=== PATIENT | female | born 1950 | race Caucasian/White ===

== ENCOUNTER 2016-06-08 08:09 | Day surgery (SDC) | payer MEDICARE, BC ==
[2016-06-08] MEDS ORDERED: Lactated Ringers 1,000 ML IV SCH (08:15)
[2016-06-08] MEDS ORDERED: Sodium Chloride 0.9% 10 ML Syringe FLUSH PRN (08:15)
[2016-06-08] MEDS ORDERED: ceFAZolin 1 GM in Sodium Chloride 0.9% 50 ML IV ONE (08:15)
[2016-06-08] MEDS ORDERED: Ketamine 500 mg/10 ML MDV IV ONE (10:06)
[2016-06-08] MEDS ORDERED: Midazolam 1 MG/ML 2 ML SDV IV ONE (10:06)
[2016-06-08] MEDS ORDERED: fentaNYL 100 MCG/2 ML SDV IV ONE (10:06)
[2016-06-08] MEDS ORDERED: Propofol 200 MG/20 ML SDV IV ONE (10:06)
[2016-06-08] MEDS ORDERED: Lidocaine 1% with EPINEPHrine 1:100,000 20 ML MDV ONE (10:25)
[2016-06-08] MEDS ORDERED: Bupivacaine 0.5% 30 ML SDV ONE (10:25)
--- NOTE | 2016-06-08 11:06 | PCM.OPNOTE ---
- General Post-Op/Procedure Note Date of Surgery/Procedure: 06/08/16 Operative Procedure(s): left subclavian port placement Findings: 8 Fr port placed without difficulty Pre Op Diagnosis: colon ca Post-Op Diagnosis: Same Anesthesia Technique: Local (12 ml 1 % lido with epi/0.5% buvipicaine), MAC Primary Surgeon: Ze Goode Anesthesia Provider: Rafiq Madden Complications: None Condition: Good Free Text/Narrative:: see dictation
[2016-06-08 11:42] VITALS: BP 138/77
--- NOTE | 2016-06-08 14:01 | CR ---
INDICATION: Port placement. C-ARM FLUOROSCOPY IN O.R. UP TO ONE HOUR: One-half minute C-arm fluoroscopy time was utilized in guidance for placement of an A-Port. Five images were utilized, the last showing the catheter retracted into the SVC at a level a few centimeters above the right atrium in good position. MTDD
--- NOTE | 2016-06-08 14:04 | CR ---
INDICATION: Port placement. CHEST: A single upright portable view of the chest was obtained and revealed the Port-A-Cath now placed from the left subclavian to lie with its tip at the level of the yelitza in good position. Poor inspiration is noted emphasizing markings and the heart size. Dextroconvex scoliosis is suggested. No definite consolidating pneumonia is seen. There may be some linear atelectatic strands versus fibrosis at the left lung base. IMPRESSION: Satisfactory position Port-A-Cath. MTDD
--- NOTE | 2016-06-08 23:38 | OR ---
DATE OF OPERATION: 06/08/2016 SURGEON: Ze Goode MD PROCEDURE PERFORMED: Left subclavian port placement. PREOPERATIVE DIAGNOSIS: History of colon cancer of the hepatic flexure, requiring chemotherapy. POSTOPERATIVE DIAGNOSIS: History of colon cancer of the hepatic flexure, requiring chemotherapy. INDICATIONS FOR PROCEDURE: This is a 66-year-old white female, who is status post right hemicolectomy for adenocarcinoma of the colon. She is up for chemotherapy and a port has been requested by her chemotherapist to aid in her chemotherapy. Intraoperative findings are as follows; a Bard X-Port isp implantable port with an 8-I[place]ic catheter was inserted into the left subclavian vein without difficulty. Tip placement under fluoroscopy demonstrates it to be in the superior vena cava and it aspirates and flush freely. DESCRIPTION OF OPERATION: After an excellent general IV sedation was administered, and a roll was placed underneath the patient's left shoulder, she was prepped and draped in usual sterile manner. The patient in Trendelenburg position, and the left subclavian vein was accessed with access needle. The guidewire was then inserted through the catheter and inserted easily. We stopped insertion when we noted PVCs. The access needle was then removed and x- ray confirmation of the guidewire was obtained. We then made a stab incision, where the guidewire exited and then created a small port incision for her port and after testing her port, approximately 2 cm below the guidewire, the access catheter was then inserted and advanced through the port pocket to where the guidewire exited and then with the patient back in Trendelenburg position, the tear-away sheath catheter, dilator was inserted. The dilator and guidewire were removed and then the catheter was then inserted down the tear-away sheath, and a tear-away sheath was removed. This was noted to flush and aspirate freely. Under direct visualization, the catheter was slowly withdrawn to the level of the superior vena cava, cut to length and then inserted into the port, which was then tacked to the anterior chest wall. The skin was closed with subcu 4-0 Vicryl, Steri-Strips were applied. The port was test fitted with a flush once again and noted to aspirate and flush freely with saline and then a Hep-Lock was used to flush as well. A total of 12 mL of 1:1 mixture of 1% lidocaine with epinephrine, 0.5% bupivacaine was used for the entire procedure. The patient tolerated the procedure well and was taken to recovery room in good condition. /[id number] /MODL
== END 2016-06-08 12:15 | disposition home or self-care (01) ==
LOC: FB.SDS 08:09
PROVIDERS: ATTEND Surgery
DX: Z51.11 Encounter for antineoplastic chemotherapy (principal); Z88.1 Allergy status to other antibiotic agents; Z79.82 Long term (current) use of aspirin; Z79.899 Other long term (current) drug therapy; Z90.49 Acquired absence of other specified parts of digestive tract; Z90.710 Acquired absence of both cervix and uterus
CPT/HCPCS: 36561; 77001; J0690; J1642; J2250; J2704; J3010; J7050; J7120; 00532-QZ

== ENCOUNTER 2017-04-28 06:53 | Day surgery (SDC) | payer MEDICARE, BC ==
[2017-04-28] MEDS ORDERED: Sodium Chloride 0.9% 10 ML Syringe FLUSH PRN (07:00)
[2017-04-28] MEDS ORDERED: Lactated Ringers 1,000 ML IV SCH (07:00)
[2017-04-28] MEDS ORDERED: Midazolam 1 MG/ML 2 ML SDV IV ONE (08:30)
[2017-04-28] MEDS ORDERED: Propofol 200 MG/20 ML SDV IV ONE (08:30)
--- NOTE | 2017-04-28 08:53 | PCM.OPNOTE ---
- General Post-Op/Procedure Note Date of Surgery/Procedure: 04/28/17 Operative Procedure(s): c scope Findings: unremarkable exam s/p right moisés colectomy Pre Op Diagnosis: hx of colon cancer s/p right moisés Post-Op Diagnosis: unremarkable exam s/p right moisés colectomy Anesthesia Technique: MAC Primary Surgeon: Ze Goode Anesthesia Provider: Teodora Ash Pathology: none Complications: None Condition: Good Free Text/Narrative:: see dictation
[2017-04-28 11:19] VITALS: BP 131/67
--- NOTE | 2017-04-28 11:25 | OR ---
DATE OF OPERATION: 04/28/2017 SURGEON: Ze Goode MD PROCEDURE PERFORMED: Colonoscopy. PREOPERATIVE DIAGNOSIS: History of colon cancer at the hepatic flexure, status post right extended hemicolectomy. POSTOPERATIVE DIAGNOSIS: Normal scope. INDICATIONS FOR PROCEDURE: This is a 67-year-old white female who presents now at her one-year anniversary from her colon resection, for a followup colonoscopy. She is without complaints. DESCRIPTION OF PROCEDURE: After an excellent IV sedation was administered, digital rectal exam was performed. No marked abnormality was noted. Flexible colonoscope was inserted and advanced to the ileocolic anastomosis without difficulty. The following findings were noted. The anastomosis was unremarkable. Photo was taken. Transverse colon, unremarkable. Descending colon, unremarkable. Sigmoid and rectum, unremarkable. Colon was deflated as the scope was removed. The patient tolerated the procedure well and was taken to Recovery. RECOMMENDATIONS: Repeat colonoscopy in 3 years, unless this is changed by her oncologist. /[id number] /MODL
== END 2017-04-28 09:48 | disposition home or self-care (01) ==
LOC: FB.SDS 06:53
PROVIDERS: ATTEND Surgery
DX: Z08 Encounter for follow-up examination after completed treatment for malignant neoplasm (principal); Z85.038 Personal history of other malignant neoplasm of large intestine; Z79.82 Long term (current) use of aspirin; Z79.899 Other long term (current) drug therapy; Z88.1 Allergy status to other antibiotic agents; Z90.49 Acquired absence of other specified parts of digestive tract; Z90.710 Acquired absence of both cervix and uterus
CPT/HCPCS: 00811; 45378; J2250; J2704; J7120

== ENCOUNTER 2017-07-31 06:38 | Day surgery (SDC) | payer MEDICARE, BC ==
[2017-07-31] MEDS ORDERED: Lactated Ringers 1,000 ML IV SCH (06:45)
[2017-07-31] MEDS ORDERED: Propofol 200 MG/20 ML SDV IV ONE (08:30)
[2017-07-31] MEDS ORDERED: Midazolam 1 MG/ML 2 ML SDV IV ONE (08:30)
[2017-07-31] MEDS: Sodium Chloride 0.9% 10 ML Syringe FLUSH PRN ×2 (08:35→09:20)
--- NOTE | 2017-07-31 08:55 | PCM.OPNOTE ---
- General Post-Op/Procedure Note Date of Surgery/Procedure: 07/31/17 Operative Procedure(s): egd with bx Findings: gastritis Pre Op Diagnosis: elevated cea Post-Op Diagnosis: gastritis Anesthesia Technique: MAC Primary Surgeon: Ze Goode Anesthesia Provider: Jay Sommers Pathology: gastric Complications: None Condition: Good Free Text/Narrative:: see dictation [id number]
[2017-07-31 10:06] VITALS: BP 117/46
--- NOTE | 2017-07-31 10:32 | OR ---
DATE OF OPERATION: 07/31/2017 SURGEON: Ze Goode MD PREOPERATIVE DIAGNOSIS: Elevated CEA. POSTOPERATIVE DIAGNOSIS: Gastritis. INDICATIONS FOR PROCEDURE: This is a 67-year-old white female who has a history of colon cancer. She had been doing quite well postoperatively. She was noted to have an elevation in her CEA and her workup to date has been negative. An upper endoscopy was requested by Dr. Duran in [place], to look for possible upper endoscopic etiology. She was offered and accepted an esophagogastroduodenoscopy. PROCEDURE IN DETAIL: After an excellent IV sedation was administered, the bite block was inserted. Flexible endoscope was passed without difficulty down the patient's esophagus into her stomach. Stomach was insufflated and the scope was passed through the pylorus to the second portion of duodenum, then slowly withdrawn. Following findings were noted. Duodenum was unremarkable. Stomach demonstrated mild gastritis. Biopsies were taken. Esophagus was unremarkable. Stomach was deflated and the scope was removed. The patient tolerated the procedure well, and was taken to recovery room in good condition. /[id number] /MODL
== END 2017-07-31 09:50 | disposition home or self-care (01) ==
LOC: FB.SDS 06:38
PROVIDERS: ATTEND Surgery
DX: K29.50 Unspecified chronic gastritis without bleeding (principal); Z79.82 Long term (current) use of aspirin; Z79.899 Other long term (current) drug therapy; Z88.1 Allergy status to other antibiotic agents; Z90.49 Acquired absence of other specified parts of digestive tract; Z90.710 Acquired absence of both cervix and uterus; Z98.890 Other specified postprocedural states; Z85.038 Personal history of other malignant neoplasm of large intestine
CPT/HCPCS: 00731-QZ; 88305; 88342; J1642; J2250; J2704; J7050; J7120